=== PATIENT | female | born 1940 | race Caucasian/White ===

== ENCOUNTER → 2016-05-26 | Outpatient (CLI) | payer MEDICARE | LOC: LAB.O 15:59 | PROVIDERS: ATTEND Psychiatry & Neurology Neurology | DX: E03.9 Hypothyroidism, unspecified (principal); M06.9 Rheumatoid arthritis, unspecified; D86.9 Sarcoidosis, unspecified; M35.00 Sjogren syndrome, unspecified; M32.10 Systemic lupus erythematosus, organ or system involvement unspecified; M31.6 Other giant cell arteritis; I77.9 Disorder of arteries and arterioles, unspecified; R41.3 Other amnesia ==

== ENCOUNTER → 2017-03-16 | Outpatient (CLI) | payer MEDICARE | LOC: GMAJ 10:45 | PROVIDERS: ATTEND Family Medicine | DX: I10 Essential (primary) hypertension (principal) ==

== ENCOUNTER → 2017-04-11 | Outpatient (CLI) | payer MEDICARE ==
--- NOTE | 2017-04-16 20:01 | MAM ---
EXAM DESCRIPTION: 3D Screening BILATERAL : Digital Mammography. CLINICAL HISTORY: 76 years Female SCREENING . No complaints. No family history breast cancer. Postmenopausal. No HRT. COMPARISON: 2-D digital screening bilateral study 05/05/2010. No prior reports available. TECHNIQUE: Bilateral CC and MLO projection full-field images, 3-D tomosynthesis digital mammographic technique. Also bilateral synthesized CC/ MLO full-field images. CAD not utilized. FINDINGS: The breast parenchymal density pattern is: Scattered areas of fibroglandular density. No skin thickening or nipple retraction bilateral solitary microcalcifications and solitary coarse calcifications. No focal, stellate mass or density, focal asymmetry , and no suspicious microcalcifications bilaterally. Stable mammograms compared to prior study, taking into account differences in mammographic technique IMPRESSION: BI-RADS CATEGORY: 2 - BENIGN FINDINGS. FOLLOW UP: Routine digital bilateral screening, one year interval from March 2017. Written communication explaining the IMPRESSION and follow-up, will be mailed to the patient and referring health care provider. According to the [employer], yearly mammograms are recommended starting at age 40 and continuing as long as a woman is in good health. Any breast change noted on a breast self-exam should be reported promptly to the patient's healthcare provider. Breast MRI is recommended for women with an approximately 20-25% or greater lifetime risk of breast cancer, including women with a strong family history of breast or ovarian cancer and women who have been treated for Hodgkin's disease. A negative mammographic report should not delay tissue diagnosis in patients with significant clinical history or physical findings. Extremely dense breast tissue limits the sensitivity of digital mammography. Electronically signed by: Curt Velasquez MD 04/16/2017 8:01 PM [facility]
== END ==
LOC: MAMMO 14:30
PROVIDERS: ATTEND Family Medicine
DX: Z12.31 Encounter for screening mammogram for malignant neoplasm of breast (principal)

== ENCOUNTER → 2018-07-27 | Outpatient (CLI) | payer MEDICARE ==
--- NOTE | 2018-07-27 15:46 | US ---
EXAM DESCRIPTION: Abdomen,Complete CLINICAL HISTORY: RUQ ABD PN COMPARISON: Previous CT abdomen and pelvis May 20, 2015 TECHNIQUE: Complete abdominal ultrasound FINDINGS: Visualized portions of the pancreas are unremarkable. No peripancreatic fluid. Bowel gas obscures some areas. Normal caliber of the aorta. Normal appearance of the inferior vena cava. Liver parenchyma is homogeneous in texture with increased echogenicity suggesting hepatic steatosis. Liver length of 15 cm is normal. No liver mass or intrahepatic bile duct dilatation. No liver surface irregularity. Normal appearance of hepatic veins and portal vein. Gallbladder appears normal with no intraluminal stones. No gallbladder wall thickening. Common bile duct is normal in caliber measuring 6.0 mm. The right kidney measures 9.4 cm in length. Normal renal cortical echogenicity. The renal cortical thickness appears normal. No right renal mass, shadowing stone or cyst. There is no hydronephrosis. 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 Spleen is normal in size. No focal splenic lesion. The left kidney measures 10.6 cm in length. Normal renal cortical echogenicity. The renal cortical thickness appears normal. No left renal mass, shadowing stone or cyst. There is no hydronephrosis. IMPRESSION: Hyperechoic liver consistent with diffuse hepatic steatosis. Otherwise unremarkable sonogram of the upper abdomen. Electronically signed by: Gilson Plummer MD 07/27/2018 3:44 PM CDT
== END ==
LOC: US 11:14
PROVIDERS: ATTEND Family Medicine
DX: R10.11 Right upper quadrant pain (principal)